=== PATIENT | male | born 1955 | race Caucasian/White ===

== ENCOUNTER 2017-05-15 11:42 | Emergency (ER) | payer SELFPAY ==
[2017-05-15] MEDS ORDERED: Famotidine 20 MG/2 ML SDV IVPUSH ONE (12:17)
[2017-05-15] MEDS ORDERED: Sodium Chloride 0.9% 1,000 ML IV ONE (12:17)
[2017-05-15] MEDS ORDERED: Nitroglycerin 0.4 MG Tab.SL SL ONE (12:17)
[2017-05-15] MEDS ORDERED: Sodium Chloride 0.9% 2.5 ML Syringe FLUSH PRN (12:17)
[2017-05-15] MEDS ORDERED: Sodium Chloride 0.9% 10 ML Syringe FLUSH PRN (12:17)
[2017-05-15] MEDS ORDERED: Aspirin 81 MG Tab.Chew PO ONE (12:17)
[2017-05-15] MEDS ORDERED: Metoprolol Tartrate 5 MG in Sodium Chloride 0.9% 50 ML IV ONE (12:19)
--- NOTE | 2017-05-15 12:19 | EDM.PDOC ---
ED HPI GENERAL MEDICAL PROBLEM - General Chief Complaint: Respiratory Problem Stated Complaint: COUGH,SHORTNESS OF BREATH Time Seen by Provider: 05/15/17 12:14 Source of Information: Reports: Patient History Limitations: Reports: No Limitations - History of Present Illness INITIAL COMMENTS - FREE TEXT/NARRATIVE: HISTORY AND PHYSICAL: []62-year-old gentleman presenting with shortness of breath History of Present Illness: []Patient has been short of breath for a week Denies seen in a medical person in the last 15 years has been healthy up until now Edema to his legs and feet have been present for several months and now half the size that they have been in the past Review of Systems: As per history of present illness and below otherwise all systems reviewed and negative. Past medical history: As per history of present illness and as reviewed below otherwise noncontributory. Surgical history: As per history of present illness and as reviewed below otherwise noncontributory. Social history: No reported history of drug or alcohol abuse. Family history: As per history of present illness and as reviewed below otherwise noncontributory. Family history consists of father with congestive heart failure Other had spinal meningitis just a few years ago Physical exam: Alert and oriented gentleman who is short of breath with speaking somewhat pale he has 3+ edema to his lower legs and ankles skin is thickened and tight. Patient has a heart rate that is quite rapid 140s on monitor. Wheezing noted throughout his chest. Patient states it is difficult to get a breath O2 is applied HEENT: Atraumatic, normocehpalic, pupils reactive, negative for conjunctival pallor or scleral icterus, mucous membranes moist, throat clear, neck supple, nontender, trachea midline. Lungs: Wheezes on auscultation, breath sounds equal bilaterally, chest non tender. Heart: S1S2, regular, negative for clicks, rubs, or JVD. Abdomen: Soft, rounded mildly tender on palpation. Negative for masses or hepatossplenmegaly. Negative for costovertebral tenderness. Pelvis: Stable nontender. Genitourinary: Deferred. Rectal: Deferred Extremities: Atraumatic, negative for cords or calf pain. Neurovascular unremarkable. Neuro: Awake, alert, oriented. Cranial nerves II through XII unremarkable. Cerebellum unremarkable. Motor and sensory unremarkable throughout. Exam nonfocal. Patient is requesting to be released from the emergency department. He is willing to sign AMA he has verbalized understanding of my concerns of his condition leaving may result in him of an MA or . Patient's rate was slowed by the beta rigo given second EKG was obtained Dr. Barrington montero and evaluated the EKGs and the patient. Prescription has been written for 7 days off metoprolol 50 mg daily Prescription was written for Lasix 20 mg daily Discussed with patient to take 1 aspirin daily Diagnostics: [CBC CMP troponin EKG amylase lipase be nothing by mouth] Therapeutics: [IV solution 100/h Metoprolol IV push] Impression: [New onset atrial flutter. ] Plan: [Patient signed out AMA instead of admission to the hospital] Definitive disposition and diagnosis as appropriate pending reevaluation and review of above. Onset: Gradual Duration: Week(s): (1) Location: Reports: Generalized Severity: Moderate Improves with: Reports: None Worsens with: Reports: Movement Associated Symptoms: Reports: Cough Treatments GLOVE STITCHER: Reports: EKG - Related Data Allergies Allergy/AdvReac Type Severity Reaction Status Date / Time Penicillins Allergy Airway Verified 05/15/17 12:11 Tightness Home Meds: Home Meds . [No Known Home Meds] 05/15/17 [History] ED ROS GENERAL - Review of Systems Review Of Systems: ROS reveals no pertinent complaints other than HPI. ED EXAM, GENERAL - Physical Exam Exam: See Below (See dictation) EKG INTERPRETATION EKG Date: 05/15/17 Rhythm: A-Flutter Comparison: NA - No Prior EKG Course - Vital Signs Last Recorded V/S: Last Vital Signs Temp 36.8 C 05/15/17 12:07 Pulse 111 H 05/15/17 13:30 Resp 18 05/15/17 12:07 BP 105/85 05/15/17 13:30 Pulse Ox 95 05/15/17 12:07 - Orders/Labs/Meds Orders: Active Orders 24 hr Category Date Time Status EKG Documentation Completion [RC] STAT Care 05/15/17 12:17 Active EKG Documentation Completion [RC] STAT Care 05/15/17 12:35 Active Notify Provider Consults [RC] ASDIRECTED Care 05/15/17 15:03 Active Oxygen Therapy [RC] ASDIRECTED Care 05/15/17 12:17 Active Consult to Physician [CONS] Stat Cons 05/15/17 15:02 Active Sodium Chloride 0.9% [Saline Flush] Med 05/15/17 12:17 Active 10 ml FLUSH ASDIRECTED PRN Sodium Chloride 0.9% [Saline Flush] Med 05/15/17 12:17 Active 2.5 ml FLUSH ASDIRECTED PRN Saline Lock Insert [OM.PC] Stat Oth 05/15/17 12:17 Ordered Medication Orders Sodium Chloride (Saline Flush) 10 ml FLUSH ASDIRECTED PRN PRN Reason: Keep Vein Open Last Admin: 05/15/17 13:30 Dose: 10 ml Sodium Chloride (Saline Flush) 2.5 ml FLUSH ASDIRECTED PRN PRN Reason: Keep Vein Open Last Admin: 05/15/17 13:30 Dose: 2.5 ml Labs: Laboratory Tests 05/15/17 05/15/17 05/15/17 Range/Units 12:25 12:25 12:25 WBC 4.30 (4.0-11.0) K/uL RBC 3.92 L (4.50-5.90) M/uL Hgb 12.8 L (13.0-17.0) g/dL Hct 37.9 L (38.0-50.0) % MCV 96.7 (80.0-98.0) fL MCH 32.7 H (27.0-32.0) pg MCHC 33.8 (31.0-37.0) g/dL RDW Std Deviation 51.2 (28.0-62.0) fl RDW Coeff of Gato 15 (11.0-15.0) % Plt Count 175 (150-400) K/uL MPV 8.40 (7.40-12.00) fL Neut % (Auto) 60.2 (48.0-80.0) % Lymph % (Auto) 24.0 (16.0-40.0) % [place] % (Auto) 13.5 (0.0-15.0) % Eos % (Auto) 1.6 (0.0-7.0) % Baso % (Auto) 0.7 (0.0-1.5) % Neut # (Auto) 2.6 (1.4-5.7) K/uL Lymph # (Auto) 1.0 (0.6-2.4) K/uL [place] # (Auto) 0.6 (0.0-0.8) K/uL Eos # (Auto) 0.1 (0.0-0.7) K/uL Baso # (Auto) 0.0 (0.0-0.1) K/uL Nucleated RBC % 0.0 /100WBC Nucleated RBCs # 0 K/uL INR 1.24 D-Dimer, Quantitative 0.58 H (0.0-0.52) mg/LFEU Sodium 127 L (136-146) mmol/L Potassium 4.3 (3.5-5.1) mmol/L Chloride 93 L (98-110) mmol/L Carbon Dioxide 24 (21-31) mmol/L BUN 7 (6.0-23.0) mg/dL Creatinine 0.7 (0.6-1.5) mg/dL Est Cr Clr Drug Dosing 108.57 mL/min Estimated GFR (MDRD) > 60.0 ml/min Glucose 109 (60-110) mg/dL Calcium 8.6 L (8.8-10.8) mg/dL Total Bilirubin 1.0 (0.1-1.5) mg/dL AST 33 (5-40) IU/L ALT 16 (8-54) IU/L Alkaline Phosphatase 57 (40-150) Troponin I < 0.10 (0.0-0.29) NG/ML B-Natriuretic Peptide (<100) PG/ML Total Protein 7.1 (6.0-8.0) g/dL Albumin 3.7 (3.4-4.8) g/dL Globulin 3.4 (2.0-3.5) g/dL Albumin/Globulin Ratio 1.1 L (1.3-2.8) Amylase 38 (10-90) U/L Lipase 29 (7-80) U/L Urine Color Urine Appearance Urine pH (5.0-8.0) Ur Specific [place] (1.001-1.035) Urine Protein (NEGATIVE) mg/dL Urine Glucose (UA) (NEGATIVE) mg/dL Urine Ketones (NEGATIVE) mg/dL Urine Occult Blood (NEGATIVE) Urine Nitrite (NEGATIVE) Urine Bilirubin (NEGATIVE) Urine Urobilinogen (<2.0) EU/dL Ur Leukocyte Esterase (NEGATIVE) Urine RBC (0-2/HPF) Urine WBC (0-5/HPF) Ur Epithelial Cells (NONE-FEW) Urine Bacteria (NEGATIVE) 05/15/17 05/15/17 Range/Units 12:25 13:35 WBC (4.0-11.0) K/uL RBC (4.50-5.90) M/uL Hgb (13.0-17.0) g/dL Hct (38.0-50.0) % MCV (80.0-98.0) fL MCH (27.0-32.0) pg MCHC (31.0-37.0) g/dL RDW Std Deviation (28.0-62.0) fl RDW Coeff of [place]ato (11.0-15.0) % Plt Count (150-400) K/uL MPV (7.40-12.00) fL Neut % (Auto) (48.0-80.0) % Lymph % (Auto) (16.0-40.0) % [place] % (Auto) (0.0-15.0) % Eos % (Auto) (0.0-7.0) % Baso % (Auto) (0.0-1.5) % Neut # (Auto) (1.4-5.7) K/uL Lymph # (Auto) (0.6-2.4) K/uL [place] # (Auto) (0.0-0.8) K/uL Eos # (Auto) (0.0-0.7) K/uL Baso # (Auto) (0.0-0.1) K/uL Nucleated RBC % /100WBC Nucleated RBCs # K/uL INR D-Dimer, Quantitative (0.0-0.52) mg/LFEU Sodium (136-146) mmol/L Potassium (3.5-5.1) mmol/L Chloride (98-110) mmol/L Carbon Dioxide (21-31) mmol/L BUN (6.0-23.0) mg/dL Creatinine (0.6-1.5) mg/dL Est Cr Clr Drug Dosing mL/min Estimated GFR (MDRD) ml/min Glucose (60-110) mg/dL Calcium (8.8-10.8) mg/dL Total Bilirubin (0.1-1.5) mg/dL AST (5-40) IU/L ALT (8-54) IU/L Alkaline Phosphatase (40-150) Troponin I (0.0-0.29) NG/ML B-Natriuretic Peptide 235 H (<100) PG/ML Total Protein (6.0-8.0) g/dL Albumin (3.4-4.8) g/dL Globulin (2.0-3.5) g/dL Albumin/Globulin Ratio (1.3-2.8) Amylase (10-90) U/L Lipase (7-80) U/L Urine Color YELLOW Urine Appearance CLEAR Urine pH 7.0 (5.0-8.0) Ur Specific [place] 1.010 (1.001-1.035) Urine Protein NEGATIVE (NEGATIVE) mg/dL Urine Glucose (UA) NEGATIVE (NEGATIVE) mg/dL Urine Ketones NEGATIVE (NEGATIVE) mg/dL Urine Occult Blood NEGATIVE (NEGATIVE) Urine Nitrite NEGATIVE (NEGATIVE) Urine Bilirubin NEGATIVE (NEGATIVE) Urine Urobilinogen 2.0 H (<2.0) EU/dL Ur Leukocyte Esterase NEGATIVE (NEGATIVE) Urine RBC 0-1 (0-2/HPF) Urine WBC 0-1 (0-5/HPF) Ur Epithelial Cells RARE (NONE-FEW) Urine Bacteria RARE (NEGATIVE) Meds: Medications Generic Name Dose Route Start Last Admin Trade Name Freq PRN Reason Stop Dose Admin Sodium Chloride 10 ml 05/15/17 12:17 05/15/17 13:30 Saline Flush FLUSH 10 ml ASDIRECTED PRN Administration Keep Vein Open Sodium Chloride 2.5 ml 05/15/17 12:17 05/15/17 13:30 Saline Flush FLUSH 2.5 ml ASDIRECTED PRN Administration Keep Vein Open Discontinued Medications Generic Name Dose Route Start Last Admin Trade Name Freq PRN Reason Stop Dose Admin Aspirin 324 mg 05/15/17 12:17 05/15/17 12:26 Aspirin PO 05/15/17 12:18 324 mg ONETIME ONE Administration Enoxaparin Sodium 100 mg 05/15/17 13:03 05/15/17 13:30 Lovenox SUBCUT 05/15/17 13:04 100 mg ONETIME ONE Administration Famotidine 20 mg 05/15/17 12:17 05/15/17 12:25 Pepcid IVPUSH 05/15/17 12:18 20 mg ONETIME ONE Administration Furosemide 20 mg 05/15/17 14:43 05/15/17 14:57 Lasix IVPUSH 05/15/17 14:44 Not Given NOW ONE Furosemide 20 mg 05/15/17 14:57 Lasix PO 05/15/17 14:58 ONETIME ONE Sodium Chloride 1,000 mls @ 999 mls/hr 05/15/17 12:17 05/15/17 12:32 Normal Saline IV 05/15/17 13:17 999 mls/hr .Bolus ONE Administration Iopamidol 75 ml 05/15/17 13:49 05/15/17 14:11 Isovue Multipack-370 (76%) IVPUSH 05/15/17 13:50 75 ml ONETIME STA Administration Metoprolol Tartrate 5 mg 05/15/17 12:24 05/15/17 12:27 Lopressor IV 05/15/17 12:25 5 mg ONETIME ONE Administration Metoprolol Tartrate 5 mg 05/15/17 12:39 05/15/17 12:44 Lopressor IVPUSH 05/15/17 12:40 5 mg ONETIME ONE Administration Metoprolol Tartrate 5 mg 05/15/17 12:45 Lopressor IVPUSH 05/15/17 12:56 Q5M OBIE Metoprolol Tartrate 50 mg 05/15/17 13:04 05/15/17 13:30 Lopressor PO 05/15/17 13:05 50 mg ONETIME ONE Administration Nitroglycerin 0.4 mg 05/15/17 12:17 05/15/17 12:25 Nitrostat SL 05/15/17 12:18 0.4 mg ONETIME ONE Administration Departure - Departure Time of Disposition: 15:18 Disposition: Eloped 07 Condition: Fair Clinical Impression: New onset atrial flutter, Peripheral edema - Discharge Information Instructions: Shortness of Breath, [id number] Referrals: PCP,None [Primary Care Provider] - Forms: ED Department Discharge - My Orders Last 24 Hours: My Active Orders 05/15/17 12:17 EKG Documentation Completion [RC] STAT Oxygen Therapy [RC] ASDIRECTED Sodium Chloride 0.9% [Saline Flush] 10 ml FLUSH ASDIRECTED PRN Sodium Chloride 0.9% [Saline Flush] 2.5 ml FLUSH ASDIRECTED PRN Saline Lock Insert [OM.PC] Stat 05/15/17 12:35 EKG Documentation Completion [RC] STAT - Assessment/Plan Last 24 Hours: My Active Orders 05/15/17 12:17 EKG Documentation Completion [RC] STAT Oxygen Therapy [RC] ASDIRECTED Sodium Chloride 0.9% [Saline Flush] 10 ml FLUSH ASDIRECTED PRN Sodium Chloride 0.9% [Saline Flush] 2.5 ml FLUSH ASDIRECTED PRN Saline Lock Insert [OM.PC] Stat 05/15/17 12:35 EKG Documentation Completion [RC] STAT
[2017-05-15] MEDS ORDERED: Metoprolol Tartrate 5 MG/5 ML SDV IV ONE (12:24)
[2017-05-15] MEDS ORDERED: Metoprolol Tartrate 5 MG/5 ML SDV IVPUSH ONE (12:39)
[2017-05-15] MEDS ORDERED: Metoprolol Tartrate 5 MG/5 ML SDV IVPUSH SCH (12:45)
--- NOTE | 2017-05-15 12:49 | CR ---
Single view portable chest Clinical history: Shortness of breath Comparison: None Findings: There is cardiomegaly with pulmonary vessels at upper normal limits in size but not engorge d. There is no overt infiltrate failure or volume loss. Minor subsegmental atelectasis is present at both bases. Impression: Cardiomegaly. Minor subsegmental atelectasis without infiltrate or failure
[2017-05-15 12:55] LABS: CHLORIDE,CL 93 mmol/L (98-110); SODIUM,NA 127 mmol/L (136-146)
[2017-05-15] MEDS ORDERED: Enoxaparin 100 MG/1 ML Syringe SUBCUT ONE (13:03)
[2017-05-15] MEDS ORDERED: Metoprolol Tartrate 50 MG Tab PO ONE (13:04)
[2017-05-15] MEDS ORDERED: Iopamidol 755 MG/ML 500 ML Multipack Bottle IVPUSH STA (13:49)
--- NOTE | 2017-05-15 14:30 | CT ---
CT scan of the chest with intravenous contrast Clinical history shortness of breath Comparison: Chest x-ray showing cardiomegaly and bilateral subsegmental atelectasis same date Findings: Lungs are free of significant airspace consolidation. There is a small right pleural effusi on. Contrast-enhanced images demonstrate good opacification of the pulmonary arteries and there is no evidence of pulmonary artery embolism. Chest wall is unremarkable and axillary regions are normal. T here is no mediastinal adenopathy or mass. There is an aortic aneurysm of the ascending aorta measuri ng 49 mm. There is dense calcification at the left main coronary artery and the proximal anterior jess cending and circumflex coronary arteries. Scanning below the confines of the chest reveals a large amount of ascites visible in the upper abdom en. Visualized portions of the liver spleen and pancreas are unremarkable other than likely fatty inf iltration of the liver Impression: No significant pulmonary consolidation. No pulmonary embolism. Ascites and small right pl eural effusion. Likely chronic liver disease with fatty liver
[2017-05-15] MEDS ORDERED: Furosemide 40 MG/4 ML VIAL IVPUSH ONE (14:43)
[2017-05-15] MEDS ORDERED: Furosemide 20 MG Tab PO ONE (14:57)
--- NOTE | 2017-05-15 17:23 | CONS ---
DATE OF CONSULTATION: DATE OF : 1955 PRIMARY CARE PHYSICIAN: None PCP REASON FOR CONSULTATION: Aflutter and shortness of breath. HISTORY: This is a 62-year-old gentleman who has not been seen by a doctor for a long period of time and he is from out of town and he is seen in [place] for 2 weeks for work and today he stated that he started having shortness of breath and heart racing. However, he denies chest pain, leg swelling, that is why he came into the emergency room. When he came into the emergency room, he was found to have a fast heart rate of 144 with a blood pressure of 143/100 and O2 saturation is about 95 on room, respiration rate is 20 and the EKG showed possible atrial flutter. He was given Lovenox shot 100 mg subcutaneous 1 time as well as metoprolol 5 mg IV x2 doses and then heart rate getting better to the rate of 100. Other workup including D-dimer was positive at 0.58 as well as a BNP was elevated to 35 and he had a CAT scan of the chest done which showed aortic aneurysm of ascending aorta 4.9 mm, however there was no evidence of dissection or PE. There was noted to have ascites as well as small right pleural effusion. There was a coronary calcification as well. Then due to the concern of CHF, he was given Lasix p.o. 1 time and he was recommended to stay in the hospital. However, the patient refused and signs AMA to leave the hospital. He verbalized understanding of the worst consequences of not being admitted for further workup and further treatment. PAST MEDICAL HISTORY: He denies history of hypertension, heart failure, heart attack, history of irregular heart beat, dyslipidemia, diabetes. ALLERGIES: He is allergic to penicillin. SOCIAL HISTORY: He is a smoker, but no alcohol or drug use. PHYSICAL EXAMINATION: VITAL SIGNS: Initial blood pressure is 143/100, and after IV metoprolol it was improving to 105/85 and heart rate initially was 140, is improving to 111. O2 saturation 99 on room, respiration rate 20, temperature 36.8. HEENT: Not pallor. No jaundice. No JVD. HEART: Normal S1, S2. No murmur. LUNGS: Crackles bibasilar. ABDOMEN: Mildly distended. Soft, nontender. Bowel sounds present. LEGS: Trace edema. INVESTIGATIONS: CBC showed WBC of 4, hematocrit of 37, hemoglobin is 12, platelet is 175, INR 1.2. D-dimer 0.58, sodium 127, potassium 4.3, chloride 93, bicarb 24, BUN 7, creatinine 0.7. Troponin is negative x1. BNP 235. Urinalysis is negative for infection. Chest CT with contrast did show aortic aneurysm 4.9 mm. ASSESSMENT: A 62-year-old male presented to the hospital with shortness of breath with atrial flutter, RVR with possible decompensated heart failure and ascending aortic aneurysm. He was recommended to stay in the hospital for treatment and further workup, however he refused. He was explained about the adverse consequences of not being admitted, not complying with the medical advice and he verbalized understanding that he will be responsible for his own decision. He will be given a prescription for metoprolol 50 once a day as well as aspirin 81 mg once a day and he need to be followed up with a doctor as an outpatient as soon as possible and he was instructed to return to the emergency room if his symptoms have got worse and also I explained to him about the risks of a stroke from atrial flutter and he probably would need a long-term anticoagulation. However with the aortic aneurysm, I would be more comfortable to give him just an aspirin 81 mg once a day. OLIVIA / TRISHA /[id number]
== END 2017-05-15 15:00 | disposition left against medical advice (07) ==
LOC: MW.ED 11:42
DX: I48.92 Unspecified atrial flutter (principal); R60.0 Localized edema; Z88.0 Allergy status to penicillin
CPT/HCPCS: 36415; 71045; 71260; 80053; 81001; 82150; 83690; 83880; 84484; 85025; 85379; 85610; 87804; 96361; 96374; 96375; 99285; A9270; J1650; J7040; Q9967; 99283